=== PATIENT | male | born 1950 | race Caucasian/White ===

== ENCOUNTER 2018-07-15 11:43 | Emergency (ER) | payer MEDICARE, MEDICAID, SELFPAY ==
[2018-07-15] VITALS (25 sets, daily range): BP systolic 122–158; BP diastolic 67–85; PULSE 60–76; RESP 11–25; TEMP 36.8; O2SAT 95–96
--- NOTE | 2018-07-15 11:57 | W.ED.GENAD ---
Discharge Plan Disposition Patient Disposition: HOME Condition: Improving Discharge Details Chief Complaint: GenMedical Clinical Impression: Dehydration with hyponatremia Reason For Visit: GEOFFREY Primary Care Provider: Milind Mae ED Provider: Jerel Mata Home Meds and New Rx's Prescriptions: No Action nitroglycerin [Nitrostat] 0.4 MG tablet, sublingual 0.4 mg Sublingual .Q 5 MIN PRNRF: 0 Aspirin [Adult Aspirin Regimen] 81 MG Tablet. 81 mg PO DAILY RF: 0 Discharge Instructions Instructions: Hyponatremia (ED) Additional Instructions: We will ask our care management team to make you an appointment to follow-up in the [facility]. Return to the emergency department for worsening or any other acute concern. Continue your regularly prescribed medications Medical Decision Making 67-year-old male presents from home complaining of weeks of generalized malaise, weakness, insomnia. States is been evaluated in sleep clinic and through his primary care at the [facility]. Is also concerned someone may be poisoning his water even though he personally obtains it from local stream. States to me that there is loss he will to do not like me and is worried they may have put rat poison in his water. He arrives with normal vital signs although his blood pressure is slightly hypertensive. He is well-appearing and in no acute distress. His exam is notable for bilateral end expiratory wheeze and odor of cigarettes. Does not appear acutely ill to me but does have mild COPD exacerbation. Screening labs including INR obtained given his concern for exposure to rat poison. Patient given albuterol inhaler. Labs are notable for a sodium of 127. Patient given a liter of normal saline, ate and drank in the ED. We will ask care management to arrange an outpatient follow-up at the [facility] where he sees Dr. Milind Mae. Lab Data Lab results reviewed: Yes I reviewed the patient's lab results. Laboratory Results - last 24 hr 07/15/18 07/15/18 07/15/18 12:03 12:03 12:03 WBC 10.31 RBC 4.71 Hgb 13.4 L Hct 39.6 L MCV 84.1 MCH 28.5 MCHC 33.8 RDW 14.8 H Plt Count 311 MPV 8.5 Immature Gran % 0.0 Neutrophils % 64.0 Band Neutrophils % 3.0 Lymphocytes % 14.0 Atypical Lymphs % 3 Monocytes % 15.0 Eosinophils % 1.0 Basophils % 0.0 Absolute Neutrophils 6.91 H Absolute Lymphocytes 1.75 Absolute Monocytes 1.55 H Absolute Eosinophils 0.10 Absolute Basophils 0.00 Differential Comment Manual differential RBC Morphology See below Anisocytosis 1+ PT 9.7 INR 1.0 Sodium 127 L Potassium 4.6 Chloride 92 L Carbon Dioxide 26.8 Anion Gap 8.2 BUN 11 Creatinine 0.75 Estimated GFR/1.73 m2 >= 60.00 Glucose 107 H Calcium 8.3 L Magnesium 1.8 Total Bilirubin 0.4 AST 19 ALT 16 Alkaline Phosphatase 79 Troponin I < 0.02 Total Protein 7.6 Albumin 3.3 L ECG Data Attestation: I personally reviewed and interpreted this ECG (s) as follows: Prior ECG tracings: available for review Interpretation: Normal sinus rhythm with a rate of 72, the QRS is narrow, there is nonspecific T wave inversions in nearly all leads similar to previous comparison May 05, 2015. HPI General Mode of arrival: EMS. Date/Time Provider Initiated Documentation: 07/15/18 11:50. Information obtained by: patient and EMS. History of Present Illness 67 year old M presents to the emergency department with the chief complaint of General fatigue and concern of poison water, described as mild, Quality is described as dull and constant, Patient reports no radiation. Patient started experiencing this day(s) and it has been constant. No relieving factors improve symptom(s), No exacerbating factors reported . Patient notes other (Insomia). Patient did receive the following treatments prior to arrival, none Related Data Home Medications Medication Instructions Recorded Confirmed nitroglycerin [Nitrostat] 0.4 mg SUBLINGUAL .Q 5 MIN PRN 09/19/12 07/15/18 Aspirin [Adult Aspirin Regimen] 81 mg PO DAILY 06/30/17 07/15/18 Allergies Allergy/AdvReac Type Severity Reaction Status Date / Time No Known Allergies Allergy Unverified 07/15/18 11:50 General Stated Complaint: GenMedical LETICIA: 3 Review of Systems Review of Systems No chest pain. He has mild ongoing shortness of breath that is worse when smoked cigarettes 6 systems reviewed and otherwise negative [facility] Social History Smoking/Tobacco Use Status: Current every day Tobacco Type: cigarettes Smoking packs per day: 1 Years smoked: 50 Tobacco: How many years used: 50 Alcohol Intake: current Alcohol Intake frequency: a few times a week Alcohol type: beer Drug use: Never Substance use type: does not use Do you feel safe at home: Yes Do you feel safe in your relationship?: Yes Exam Narrative Exam Narrative: GEN: awake, alert, oriented 3. Pleasant, well groomed, interactive. HEAD: Normocephalic, atraumatic ENT: Mucous membranes dry, edentulous, External ear exam unremarkable EYES: PERRL, EOMI NECK: Full ROM, no LUIS, no menigismus CHEST/RESP: Nontender, bilateral end expiratory wheeze CARDIOVASCULAR: RRR, no murmur, rub abimbola. 2+ Rad pulse bilateral ABDOMEN: Soft, nontender, no mass. +Bowel sounds EXT: Full ROM, no edema, no rash Neuro: Grossly normal neurologic exam, conversant, interactive. Psych: Speech fluent, thoughts congruent, affect normal Course Vital Signs Temperature 36.8 C 07/15/18 11:46 Pulse 76 07/15/18 11:46 Respiratory Rate 11 L 07/15/18 11:46 Blood Pressure 142/77 H 07/15/18 11:46 Pulse Oximetry 95 07/15/18 11:46 Temperature 36.8 C 07/15/18 11:46 Temperature Source Temporal Artery Scan 07/15/18 11:46 Pulse 76 07/15/18 11:46 Respiratory Rate 18 07/15/18 11:51 Respiratory Effort 07/15/18 11:51 Respiratory Depth Normal 07/15/18 11:51 Respiratory Pattern Normal 07/15/18 11:51 Blood Pressure 142/77 H 07/15/18 11:46 Blood Pressure Position Sitting 07/15/18 11:46 Pulse Oximetry 95 07/15/18 11:46 Oxygen Delivery Method Room Air 07/15/18 11:46 Oxygen Flow Rate 0 07/15/18 11:46 Pain Level 6 07/15/18 11:46
--- NOTE | 2018-07-15 12:03 | ED.GENADUL_ITS ---
Discharge Plan Disposition Patient Disposition: HOME Condition: Improving Discharge Details Chief Complaint: GenMedical Clinical Impression: Dehydration with hyponatremia Reason For Visit: GEOFFREY Primary Care Provider: Milind Mae ED Provider: Jerel Mata Home Meds and New Rx's Prescriptions: No Action nitroglycerin [Nitrostat] 0.4 MG tablet, sublingual 0.4 mg Sublingual .Q 5 MIN PRNRF: 0 Aspirin [Adult Aspirin Regimen] 81 MG Tablet. 81 mg PO DAILY RF: 0 Discharge Instructions Instructions: Hyponatremia (ED) Additional Instructions: We will ask our care management team to make you an appointment to follow-up in the [facility]. Return to the emergency department for worsening or any other acute concern. Continue your regularly prescribed medications Medical Decision Making 67-year-old male presents from home complaining of weeks of generalized malaise, weakness, insomnia. States is been evaluated in sleep clinic and through his primary care at the [facility]. Is also concerned someone may be poisoning his water even though he personally obtains it from local stream. States to me that there is loss he will to do not like me and is worried they may have put rat poison in his water. He arrives with normal vital signs although his blood pressure is slightly hypertensive. He is well-appearing and in no acute distress. His exam is notable for bilateral end expiratory wheeze and odor of cigarettes. Does not appear acutely ill to me but does have mild COPD exacerbation. Screening labs including INR obtained given his concern for exposure to rat poison. Patient given albuterol inhaler. Labs are notable for a sodium of 127. Patient given a liter of normal saline, ate and drank in the ED. We will ask care management to arrange an outpatient follow-up at the [facility] where he sees Dr. Milind Mae. Lab Data Lab results reviewed: Yes I reviewed the patient's lab results. Laboratory Results - last 24 hr 07/15/18 07/15/18 07/15/18 12:03 12:03 12:03 WBC 10.31 RBC 4.71 Hgb 13.4 L Hct 39.6 L MCV 84.1 MCH 28.5 MCHC 33.8 RDW 14.8 H Plt Count 311 MPV 8.5 Immature Gran % 0.0 Neutrophils % 64.0 Band Neutrophils % 3.0 Lymphocytes % 14.0 Atypical Lymphs % 3 Monocytes % 15.0 Eosinophils % 1.0 Basophils % 0.0 Absolute Neutrophils 6.91 H Absolute Lymphocytes 1.75 Absolute Monocytes 1.55 H Absolute Eosinophils 0.10 Absolute Basophils 0.00 Differential Comment Manual differential RBC Morphology See below Anisocytosis 1+ PT 9.7 INR 1.0 Sodium 127 L Potassium 4.6 Chloride 92 L Carbon Dioxide 26.8 Anion Gap 8.2 BUN 11 Creatinine 0.75 Estimated GFR/1.73 m2 >= 60.00 Glucose 107 H Calcium 8.3 L Magnesium 1.8 Total Bilirubin 0.4 AST 19 ALT 16 Alkaline Phosphatase 79 Troponin I < 0.02 Total Protein 7.6 Albumin 3.3 L ECG Data Attestation: I personally reviewed and interpreted this ECG (s) as follows: Prior ECG tracings: available for review Interpretation: Normal sinus rhythm with a rate of 72, the QRS is narrow, there is nonspecific T wave inversions in nearly all leads similar to previous comparison May 05, 2015. HPI General Mode of arrival: EMS . Date/Time Provider Initiated Documentation: 07/15/18 11:50 . Information obtained by: patient and EMS . History of Present Illness 67 year old M presents to the emergency department with the chief complaint of General fatigue and concern of poison water, described as mild, Quality is described as dull and constant, Patient reports no radiation. Patient started experiencing this day(s) and it has been constant. No relieving factors improve symptom(s), No exacerbating factors reported . Patient notes other (Insomia). Patient did receive the following treatments prior to arrival, none Related Data Home Medications Medication Instructions Recorded Confirmed nitroglycerin [Nitrostat] 0.4 mg SUBLINGUAL .Q 5 MIN PRN 09/19/12 07/15/18 Aspirin [Adult Aspirin Regimen] 81 mg PO DAILY 06/30/17 07/15/18 Allergies Allergy/AdvReac Type Severity Reaction Status Date / Time No Known Allergies Allergy Unverified 07/15/18 11:50 General Stated Complaint: GenMedical LETICIA: 3 Review of Systems Review of Systems No chest pain. He has mild ongoing shortness of breath that is worse when smoked cigarettes 6 systems reviewed and otherwise negative [facility] Social History Smoking/Tobacco Use Status: Current every day Tobacco Type: cigarettes Smoking packs per day: 1 Years smoked: 50 Tobacco: How many years used: 50 Alcohol Intake: current Alcohol Intake frequency: a few times a week Alcohol type: beer Drug use: Never Substance use type: does not use Do you feel safe at home: Yes Do you feel safe in your relationship?: Yes Exam Narrative Exam Narrative: GEN: awake, alert, oriented 3. Pleasant, well groomed, interactive. HEAD: Normocephalic, atraumatic ENT: Mucous membranes dry, edentulous, External ear exam unremarkable EYES: PERRL, EOMI NECK: Full ROM, no LUIS, no menigismus CHEST/RESP: Nontender, bilateral end expiratory wheeze CARDIOVASCULAR: RRR, no murmur, rub abimbola. 2+ Rad pulse bilateral ABDOMEN: Soft, nontender, no mass. +Bowel sounds EXT: Full ROM, no edema, no rash Neuro: Grossly normal neurologic exam, conversant, interactive. Psych: Speech fluent, thoughts congruent, affect normal Course Vital Signs Temperature 36.8 C 07/15/18 11:46 Pulse 76 07/15/18 11:46 Respiratory Rate 11 L 07/15/18 11:46 Blood Pressure 142/77 H 07/15/18 11:46 Pulse Oximetry 95 07/15/18 11:46 Temperature 36.8 C 07/15/18 11:46 Temperature Source Temporal Artery Scan 07/15/18 11:46 Pulse 76 07/15/18 11:46 Respiratory Rate 18 07/15/18 11:51 Respiratory Effort 07/15/18 11:51 Respiratory Depth Normal 07/15/18 11:51 Respiratory Pattern Normal 07/15/18 11:51 Blood Pressure 142/77 H 07/15/18 11:46 Blood Pressure Position Sitting 07/15/18 11:46 Pulse Oximetry 95 07/15/18 11:46 Oxygen Delivery Method Room Air 07/15/18 11:46 Oxygen Flow Rate 0 07/15/18 11:46 Pain Level 6 07/15/18 11:46
[2018-07-15 12:16] LABS: Abs Immature Grans 0.04 k/cumm (0.0-0.09); HCT 39.6 % (40.0-50.0); HGB 13.4 g/dL (13.5-17.5); Mean Corp. HGB Concentration 33.8 g/dL (32.0-36.0); Mean Corpuscular Hemoglobin 28.5 pg (27.0-33.0); Mean Corpuscular Volume 84.1 fL (80-95); Mean Platelet Volume 8.5 fL (8.0-11.0); Platelet Count 311 x1000/uL (130-400); RBC 4.71 m/cumm (4.50-6.00); RBC Distribution Width 14.8 % (11.8-14.1); White Blood Cell Count 10.31 k/cumm (4.4-10.8)
[2018-07-15 12:22] LABS: Prothrombin Time 9.7 sec (9.3-11.0)
[2018-07-15] MEDS: Albuterol HFA 8 GM 60 PUFF INH IH (12:22)
[2018-07-15 12:31] LABS: ALT 16 U/L (12-78); AST 19 U/L (15-37); Albumin 3.3 g/dL (3.4-5.0); Alkaline Phosphatase 79 U/L (46-116); Anion Gap 8.2 mmol/L (3-11); BUN 11 mg/dL (7-18); Bilirubin, Total 0.4 mg/dL (0.2-1.0); CO2 26.8 mmol/L (21.0-32.0); CREATININE 0.75 mg/dL (0.70-1.30); Calcium 8.3 mg/dL (8.5-10.1); Chloride 92 mmol/L (98-107); Glucose 107 mg/dL (70-100); Magnesium 1.8 mg/dL (1.8-2.4); Potassium 4.6 mmol/L (3.5-5.1); Sodium 127 mmol/L (136-145); Total Protein 7.6 g/dL (6.4-8.2); Troponin I < 0.02 ng/mL (0.00-0.06)
[2018-07-15 12:39] LABS: Absolute Neutrophil Count 6.91 k/cumm (1.2-6.7); Atypical Lymphocytes % 3
[2018-07-15 12:40] LABS: Absolute Lymphocyte Count 1.75 k/cumm (1.2-3.4); Absolute Monocyte Count 1.55 k/cumm (0.11-0.7); Anisocytosis 1+; Diff Comment Manual Differential
[2018-07-15] MEDS: Normal Saline 1,000 ML 1000 ML IV (13:06)
--- NOTE | 2018-07-16 09:58 | PDOC.ERCMPRO ---
Care Management Progress Note 07/16-Dr. Mata requested assistance with a PCP (Milind Mae, [facility]) f/u 07/19 or 07/20 for dehydration and hyponatremia. Called [facility] and spoke with Nathalia. Nathalia will reach out to patient for f/u. They have a copy of the ED report.
--- NOTE | 2018-07-16 09:59 | CMPROGNOTE_ITS ---
Care Management Progress Note 07/16-Dr. Mata requested assistance with a PCP (Milind Mae, [facility]) f/u 07/19 or 07/20 for dehydration and hyponatremia. Called [facility] and spoke with Nathalia. Nathalia will reach out to patient for f/u. They have a copy of the ED report.
== END 2018-07-15 14:22 | disposition home or self-care (01) ==
PROVIDERS: Emergency Provider Emergency Medicine; PCP Physician Assistant Medical
DX: E86.0 Dehydration (principal); E87.6 Hypokalemia
CPT/HCPCS: 80053; 96360; 99283; 83735; 84484; 85025; 85610

== ENCOUNTER 2018-07-23 09:28 | Emergency (ER) | payer MEDICARE, MEDICAID, SELFPAY ==
[2018-07-23] VITALS (63 sets, daily range): BP systolic 100–175; BP diastolic 64–105; PULSE 57–87; RESP 7–24; TEMP 37; O2SAT 86–100
--- NOTE | 2018-07-23 09:42 | DI.RAD_ITS ---
SYMPTOM/DIAGNOSIS: CHEST PAIN PORTABLE AP CHEST: Comparison is made with PA and lateral chest dated 06/30/17. The heart size is normal. Leads overlie the chest. There are old right lateral rib fractures. No acute rib fracture or pneumothorax is seen. There are mildly increased streaky densities at the lower lung bases which could indicate chronic fibrotic changes or could represent mild bibasilar infiltrates. No effusions are seen. IMPRESSION: Question of worsening of interstitial changes versus mild bibasilar infiltrates.
[2018-07-23] MEDS: Aspirin 81 MG CHEW (09:53)
--- NOTE | 2018-07-23 09:54 | NUR.NOTE ---
Nursing Note: Per MD Miller give 4 chewable 81mg ASA and 3 SL nitro
--- NOTE | 2018-07-23 09:56 | NUR.NOTE ---
Nursing Note: Pt reports chest pain x last 2 days, 10/08 currently, did not take his rx nitro becuase it was at another house. SL nitro given in ER. awaiting lab results and CXR. no acute resp ditress. cp does not radiate, described as pressure. pt denies any past CT's. ppd smoker. alert and oriented. NSR on monitoring analyst with occ. PVC's. will continue to monitor.
[2018-07-23 09:59] LABS: Abs Immature Grans 0.05 k/cumm (0.0-0.09); Absolute Basophil Count 0.05 k/cumm (0.0-0.2); Absolute Eosinophil Count 0.08 k/cumm (0.0-0.7); Absolute Lymphocyte Count 1.84 k/cumm (1.2-3.4); Absolute Monocyte Count 0.95 k/cumm (0.11-0.7); Basophils % 0.4; Eosinophils % 0.7; HCT 42.2 % (40.0-50.0); HGB 14.3 g/dL (13.5-17.5); Immature Grans % 0.4; Lymphocytes % 15.4; Mean Corp. HGB Concentration 33.9 g/dL (32.0-36.0); Mean Corpuscular Hemoglobin 28.1 pg (27.0-33.0); Mean Corpuscular Volume 82.9 fL (80-95); Mean Platelet Volume 8.2 fL (8.0-11.0); Monocytes % 7.9; Neutrophils % 75.2; RBC 5.09 m/cumm (4.50-6.00); RBC Distribution Width 14.9 % (11.8-14.1); White Blood Cell Count 11.97 k/cumm (4.4-10.8)
[2018-07-23 10:19] LABS: ALT 21 U/L (12-78); AST 18 U/L (15-37); Albumin 3.5 g/dL (3.4-5.0); Alkaline Phosphatase 87 U/L (46-116); Anion Gap 12.7 mmol/L (3-11); BUN 11 mg/dL (7-18); Bilirubin, Total 0.5 mg/dL (0.2-1.0); CO2 25.3 mmol/L (21.0-32.0); CREATININE 0.85 mg/dL (0.70-1.30); Calcium 9.2 mg/dL (8.5-10.1); Chloride 91 mmol/L (98-107); Glucose 129 mg/dL (70-100); Potassium 4.4 mmol/L (3.5-5.1); Sodium 129 mmol/L (136-145); Total Protein 8.1 g/dL (6.4-8.2)
[2018-07-23 10:21] LABS: Platelet Count 520 x1000/uL (130-400)
[2018-07-23 10:22] LABS: Magnesium 1.8 mg/dL (1.8-2.4); NT-proBNP 745 pg/mL; Troponin I < 0.02 ng/mL (0.00-0.06)
--- NOTE | 2018-07-23 10:23 | W.ED.GENAD ---
Discharge Plan Disposition Patient Disposition: AGAINST MEDICAL ADVICE Discharge Details Chief Complaint: Chest Pain Clinical Impression: Chest pain, Syncope Primary Care Provider: Liliane Bennett ED Provider: Ernie Mliler Home Meds and New Rx's Prescriptions: No Action nitroglycerin [Nitrostat] 0.4 MG tablet, sublingual 0.4 mg Sublingual .Q 5 MIN PRNRF: 0 Aspirin [Adult Aspirin Regimen] 81 MG Tablet. 81 mg PO DAILY RF: 0 Discharge Instructions Instructions: Syncope (ED) Additional Instructions: You have decided to leave against medical advice. Please had a stress test as soon as possible. You will be contacted to schedule. Return Zio patch cardiac monitor technician as directed. Please return to the ER at any time for further workup and treatment. Call your doctor komal to arrange timely follow-up. Referrals: Liliane Bennett [Primary Care Provider] - Discharge Data Discharge Date/Time-TO BE ENTERED AT DEPARTURE: 07/23/18 16:33 Medical Decision Making <Perla Miller MD - Last Filed: 07/30/18 08:38> Calvin Juan is a 67-year-old man with history of COPD, hypertension, high cholesterol, sleep apnea, alcohol abuse who presented to the emergency department with several days of intermittent chest pain and shortness of breath, along with [id number] syncopal episodes with no prodrome a few days ago that have not recurred. On exam patient is well and nontoxic appearing. He has mild bilateral expiratory wheeze, no rales or rhonchi. Normal work of breathing. Concern for ACS, PE, metabolic/lyte derangement, dehydration, arrhythmia, other. Exam/history is not consistent with acute emergent aortic pathology, sepsis, meningitis. Plan for EKG, screening labs, IV fluid hydration, CT PE study, telemetry, aspirin, nitroglycerin sublingual. Patient reports that his pain seemed to have improved before the nitro, and nitro did not make a difference. Feels improved after DuoNeb. Troponin x2 and EKG x2 negative. Patient reports that he feels well and has had no further chest pain. Concern for syncope without prodrome and recurring intermittent chest pain. Plan for admission. Patient declines admission at this time, states that he would much rather be in his own home and would like to follow-up as an outpatient. I did discuss the risks of leaving AGAINST MEDICAL ADVICE with the patient including and permanent disability. Patient verbalized understanding the risks, and stated that he would still rather not be admitted and would like to go home. Patient has decision-making capacity. At this time plan for zio patch, outpatient stress test, and outpatient follow-up with patient's PCP. I had a lengthy discussion with the patient regarding return to emergency department precautions, home care, and importance of outpatient follow-up. Patient verbalized understanding of the plan was amenable. All questions were answered. Patient was signed out to Dr. Miller at time of shift change with ziopatch, outpatient stress test scheduling, outpatient follow-up pending. Medical Records Medical records reviewed: Yes I reviewed the patient's medical records. Imaging Data Radiologic Study: Attestation: I personally reviewed and interpreted this imaging study as follows: Radiologist's impression: PORTABLE AP CHEST: Comparison is made with PA and lateral chest dated 06/30/17. The heart size is normal. Leads overlie the chest. There are old right lateral rib fractures. No acute rib fracture or pneumothorax is seen. There are mildly increased streaky densities at the lower lung bases which could indicate chronic fibrotic changes or could represent mild bibasilar infiltrates. No effusions are seen. IMPRESSION: Question of worsening of interstitial changes versus mild bibasilar infiltrates. CHEST CT FOR PULMONARY EMBOLISM: CT angiography was performed with multi slice acquisition and multi planar and 3D reconstruction. The pulmonary arteries and aorta are well opacified with IV contrast and no pulmonary emboli or aortic dissection is seen. The heart size appears normal. The lungs show respiratory motion. There are a few blebs seen in the anterior right upper lobe. There is mild underlying apical emphysematous changes. There are increased densities seen in the right lower lobe as well as minimal densities seen in the left lower lobe posteriorly which have a somewhat reticulonodular appearance. The findings could represent acute infiltrates vs chronic disease. There is considerable motion near the lung bases. No gross abnormalities are seen of the visualized portions of the upper abdomen. IMPRESSION: No evidence of pulmonary emboli. Posterior basilar densities could represent acute pneumonitis vs chronic reticulonodular disease. Lab Data Lab results reviewed: Yes I reviewed the patient's lab results. ECG Data Attestation: I personally reviewed and interpreted this ECG (s) as follows: Interpretation: EKG shows sinus rhythm at 77, normal axis, diffuse T wave flattening and T wave inversions, present on prior 07/15/18, non-diagnostic EKG. EKG shows sinus rhythm at 71, normal axis, unchanged from prior, non-diagnostic EKG <Ernie Miller MD - Last Filed: 07/29/18 00:09> 16:20 -- Care signed out at 16:05. Patient leaving AMA after extended conversation with Dr. Perla Miller. Risks of leaving AMA were explained to patient and patient verbalized understanding. Patient noted to have decisional making capacity. Plan at signout to attempt to contact patient's PCP and discuss ED presentation and course and hopefulyl secure outpatient follow-up. RT was consulted to apply zio patch. Outpatient stress test was ordered to hopefully expedite outpatient workup. I called and spoke with Liliane Bennett (patient's PCP). I reviewed ED course and workup, decision to leave AMA, I recommend close outpatient follow-up, cardiology referral and continued workup. She will arrange timely follow-up. HPI <Perla Miller MD - Last Filed: 07/30/18 08:38> General Mode of arrival: ambulatory. Date/Time Provider Initiated Documentation: 07/23/18 09:42. Limitations to Documentation: no limitations. Information obtained by: patient, RN notes reviewed and old records reviewed. HPI Narrative: Calvin Juan is a 67-year-old man with history of COPD, hypertension, high cholesterol, sleep apnea, alcohol abuse presenting to the emergency department with chest pain and fainting. Patient reports that 3 days ago he was walking across the parking lot when he fainted. Patient reports that over the past week he has felt generally lousy, but he denies having presyncopal symptoms directly prior to fainting. Patient reports that he fell to the ground, and was unconscious for a minute or 2, and happened to be attended to by a doctor who is also in the parking lot. Patient reports that when he came to, he continued to go into the grocery store, but then fainted again without warning. Patient reports that he has been having intermittent chest pain over the past week or so, and has also felt somewhat more short of breath than usual. He has had no further fainting episodes. He reports that he has had a 20 pound weight loss in the past month, but his appetite seems normal. He denies fevers, vomiting, diarrhea, rash, focal weakness/numbness. He reports chronic cough that is at baseline. Patient reports that he has been having similar chest pain for months, but it seems to have increased in frequency over the past week or so. Patient reports sensation is sharp and stabbing in the middle of his chest, nonexertional, nonpleuritic. Every day smoker. Related Data Home Medications Medication Instructions Recorded Confirmed nitroglycerin [Nitrostat] 0.4 mg SUBLINGUAL .Q 5 MIN PRN 09/19/12 07/15/18 Aspirin [Adult Aspirin Regimen] 81 mg PO DAILY 06/30/17 07/15/18 Allergies Allergy/AdvReac Type Severity Reaction Status Date / Time No Known Allergies Allergy Unverified 07/15/18 11:50 General Stated Complaint: Chest Pain LETICIA: 2 Review of Systems <Perla Miller MD - Last Filed: 07/30/18 08:38> Review of Systems Constitutional: denies fevers Eyes: denies eye pain ENT: denies facial pain, dental pain, sore throat Cardiovascular: denies edema, reports chest pain Respiratory: Report SOB, chronic cough GI: denies abdominal pain, vomiting, diarrhea : denies flank pain MSK: denies back pain, neck pain, arthralgias, myalgias Skin: denies rash Neuro: denies headaches, numbness, weakness PFSH <Perla Miller MD - Last Filed: 07/30/18 08:38> Social History Smoking/Tobacco Use Status: Current every day Tobacco Type: cigarettes Tobacco: How many years used: 50 Alcohol Intake: current Alcohol Intake frequency: a few times a week Alcohol type: beer Drug use: Never Substance use type: does not use Do you feel safe at home: Yes Do you feel safe in your relationship?: Yes Exam <Perla Miller MD - Last Filed: 07/30/18 08:38> Narrative Exam Narrative: Constitutional: well and [id number], pleasant, conversing normally HENT: head atraumatic/normocephalic/normal inspection, mucous membranes moist Eyes: conjunctiva normal, sclera normal, pupils 3mm b/l Neck: no stridor, normal ROM, trachea midline Chest: normal inspection Resp: normal work of breathing, expiratory wheeze bilaterally throughout, no rales or rhonchi Cardio: normal rate, normal rhythm, no murmur appreciated GI: abdomen soft, non-tender, non-distended Back: normal inspection, no rash Skin: warm, dry, normal color, no rash Neuro: alert, not altered, grossly non-focal, normal tone Ext: no edema, no posterior calf tenderness Psych: normal mood, normal affect, normal behavior Course <Perla Miller MD - Last Filed: 07/30/18 08:38> Vital Signs Pulse 72 07/23/18 09:30 Blood Pressure 173/95 H 07/23/18 09:30 Pulse Oximetry 96 07/23/18 09:30 Temperature 37.0 C 07/23/18 09:31 Temperature Source Skin 07/23/18 09:31 Pulse 76 07/23/18 10:01 Pulse 76 07/23/18 10:10 Respiratory Rate 14 07/23/18 10:10 Respiratory Effort Short of Breath 07/23/18 09:52 Blood Pressure 139/77 07/23/18 10:01 Blood Pressure Mean 92 07/23/18 10:01 Pulse Oximetry 92 L 07/23/18 10:10 Oxygen Delivery Method Room Air 07/23/18 09:31 Oxygen Flow Rate 0 07/23/18 09:31 Pain Level 4 07/23/18 10:00 Lab/Test Results Lab/Test Results: Laboratory Tests Range/Units 07/23/18 07/23/18 07/23/18 09:50 09:50 09:50 WBC (4.4-10.8) k/cumm 11.97 H RBC (4.50-6.00) m/cumm 5.09 Hgb (13.5-17.5) g/dL 14.3 Hct (40.0-50.0) % 42.2 MCV (80-95) fL 82.9 MCH (27.0-33.0) pg 28.1 MCHC (32.0-36.0) g/dL 33.9 RDW (11.8-14.1) % 14.9 H Plt Count (130-400) x1000/uL 520 H D MPV (8.0-11.0) fL 8.2 Immature Gran % 0.4 Neutrophils % 75.2 Lymphocytes % 15.4 Monocytes % 7.9 Eosinophils % 0.7 Basophils % 0.4 Absolute Neutrophils (1.2-6.7) k/cumm 9.00 H Absolute Lymphocytes (1.2-3.4) k/cumm 1.84 Absolute Monocytes (0.11-0.7) k/cumm 0.95 H Absolute Eosinophils (0.0-0.7) k/cumm 0.08 Absolute Basophils (0.0-0.2) k/cumm 0.05 Sodium (136-145) mmol/L 129 L Potassium (3.5-5.1) mmol/L 4.4 Chloride (98-107) mmol/L 91 L Carbon Dioxide (21.0-32.0) mmol/L 25.3 Anion Gap (3-11) mmol/L 12.7 H BUN (7-18) mg/dL 11 Creatinine (0.70-1.30) mg/dL 0.85 Estimated GFR/1.73 m2 (mL/min/1.73m2) >= 60.00 Glucose (70-100) mg/dL 129 H Calcium (8.5-10.1) mg/dL 9.2 Magnesium (1.8-2.4) mg/dL 1.8 Total Bilirubin (0.2-1.0) mg/dL 0.5 AST (15-37) U/L 18 ALT (12-78) U/L 21 Alkaline Phosphatase (46-116) U/L 87 Troponin I (0.00-0.06) ng/mL < 0.02 NT-Pro-B Natriuret Pep ( - 299) pg/mL 745 H Total Protein (6.4-8.2) g/dL 8.1 Albumin (3.4-5.0) g/dL 3.5 Sign Out <Perla Miller MD - Last Filed: 07/30/18 08:38> Sign Out Data: Sign Out Comment: Patient signed out to Dr. Miller at time of shift change with zio patch, stress test scheduling, and discharge AMA pending. Last updated by Perla Miller MD at 07/23/18 15:55
[2018-07-23] MEDS: Albuterol/Ipratropium 3 ML UPD VIAL UPD (10:30)
[2018-07-23] MEDS: Normal Saline 500 ML IV ×2 (11:33→13:30)
--- NOTE | 2018-07-23 11:48 | DI.CT_ITS ---
SYMPTOMS/DIAGNOSIS: CHEST PAIN, SOB, SYNCOPE CHEST CT FOR PULMONARY EMBOLISM: CT angiography was performed with multi slice acquisition and multi planar and 3D reconstruction. The pulmonary arteries and aorta are well opacified with IV contrast and no pulmonary emboli or aortic dissection is seen. The heart size appears normal. The lungs show respiratory motion. There are a few blebs seen in the anterior right upper lobe. There is mild underlying apical emphysematous changes. There are increased densities seen in the right lower lobe as well as minimal densities seen in the left lower lobe posteriorly which have a somewhat reticulonodular appearance. The findings could represent acute infiltrates vs chronic disease. There is considerable motion near the lung bases. No gross abnormalities are seen of the visualized portions of the upper abdomen. IMPRESSION: No evidence of pulmonary emboli. Posterior basilar densities could represent acute pneumonitis vs chronic reticulonodular disease.
[2018-07-23] MEDS: Omnipaque 350 MG/ML 100 ML BTL IV (12:17)
--- NOTE | 2018-07-23 12:40 | NUR.NOTE ---
Nursing Note:Pt returned from CT, no acute changes. chest pain gone. reading a book in bed, no further needs. will continue to monitor.
[2018-07-23 15:52] LABS: Troponin I < 0.02 ng/mL (0.00-0.06)
--- NOTE | 2018-07-23 16:24 | NUR.NOTE ---
Nursing Note: RT going over zio patch with patient. IV removed.
== END 2018-07-23 16:33 | disposition left against medical advice (07) ==
PROVIDERS: Student in an Organized Health Care Education/Training Program; Emergency Provider Student in an Organized Health Care Education/Training Program; PCP Registered Nurse
DX: R55 Syncope and collapse (principal); R07.9 Chest pain, unspecified; R06.02 Shortness of breath; R63.4 Abnormal weight loss; I10 Essential (primary) hypertension; J44.9 Chronic obstructive pulmonary disease, unspecified; F17.210 Nicotine dependence, cigarettes, uncomplicated
CPT/HCPCS: 0296T; 36415; 71275; 80053; 93005; 94640; 96360; 96361; 99285; 71045; 83735; 83880; 84484; 85025; 93010; J3490; J7620

== ENCOUNTER 2019-04-16 08:23 | Emergency (ER) | payer MEDICARE, MEDICAID, SELFPAY ==
[2019-04-16 08:34] VITALS: BP 143/83; PULSE 62; RESP 14; TEMP 37; O2SAT 98
--- NOTE | 2019-04-16 09:23 | W.ED.GENAD ---
Discharge Plan Disposition Patient Disposition: HOME Condition: Good Discharge Details Chief Complaint: Laceration Clinical Impression: Laceration Primary Care Provider: Liliane Bennett ED Provider: Philomena Leos Home Meds and New Rx's Prescriptions: No Action nitroglycerin [Nitrostat] 0.4 MG tablet, sublingual 0.4 mg Sublingual .Q 5 MIN PRNRF: 0 Aspirin [Adult Aspirin Regimen] 81 MG Tablet.Dr 81 mg PO DAILY RF: 0 Discharge Instructions Instructions: Laceration (ED) Additional Instructions: Keep initial dressing in place for 1 to 2 days. Then remove dressing and begin wound care. Wound care includes washing the area with soap and water once or twice daily. Pat dry completely. Apply a light amount of antibiotic ointment over the wound. Apply a dressing over the wound. Suture removal in 10 days as discussed. Observe for any signs of infection specifically, redness, swelling, drainage, pain or discomfort or warmth. Return for any worsening or concerns sooner if needed. Your tetanus was last updated in 2011 Medical Decision Making Is a 68-year-old man who presents for laceration to the dorsal aspect of his right hand. Patient sustained laceration prior to arrival when cutting kindling with a hatchet accidentally missed striking his right hand. Patient sustained a 5 cm laceration of the dorsal hand. Patient's tetanus is last updated in 2011. Patient on exam has a linear laceration with no wrist drop or associated ligamentous injury. Patient has full range of motion. No bony pain with palpation. Declines x-ray at this time. Patient's wound was prepped appropriately with Betadine, lidocaine 1% approximately 3 cc used locally. 8 horizontal mattress sutures placed for wound approximation. No sign of complication. Patient tolerated well. Wound care discussed at length. Patient reports understanding. Signs and symptoms of infection were discussed. Patient feels comfortable managing his wound at home. Suture removal encouraged in 10 days. The patient was stable and requested discharge. Prior to discharge, my usual and customary return precautions were reviewed with the patient - this included follow-up instructions and reasons to return to the Emergency Department if conditions worsens, does not improve as expected, or other new concerns arise. HPI General Date/Time Provider Initiated Documentation: 04/16/19 09:22. HPI Narrative: Is a 68-year-old patient who presents for a right dorsal hand/wrist laceration which he sustained at home with a hatchet. Patient was chopping kindling and accidentally missed and chopped back of his hand. Patient reports mild bleeding at the site. Controlled with pressure. Patient denies numbness, tingling or weakness of wrist or hand. Patient reports full range of motion. Patient's tetanus is unknown. Reviewed in the computer as last updated in 2011. Patient denies any bony pain or concern of fracture. Injury occurred prior to arrival. No other concerns or complaints at this time. Related Data Home Medications Medication Instructions Recorded Confirmed nitroglycerin [Nitrostat] 0.4 mg SUBLINGUAL .Q 5 MIN PRN 09/19/12 04/16/19 Aspirin [Adult Aspirin Regimen] 81 mg PO DAILY 06/30/17 04/16/19 Allergies Allergy/AdvReac Type Severity Reaction Status Date / Time No Known Allergies Allergy Unverified 04/16/19 08:36 General Stated Complaint: Laceration LETICIA: 3 Review of Systems All systems reviewed & are unremarkable except as noted in HPI and below Constitutional Constitutional: Denies weakness Musculoskeletal Musculoskeletal: Denies limited range of motion, Denies numbness and Denies tingling Integumentary/Breasts Skin/Breast: Reports wounds Neurologic Neurologic: Denies numbness, Denies tingling, Denies paresthesias and Denies weakness [facility] Social History Smoking/Tobacco Use Status: Current every day Tobacco Type: cigarettes Smoking packs per day: 1 Smoking cigarettes per day: 20.0 Years smoked: 50 Smoking pack-years: 50.00 Tobacco: How many years used: 50 Alcohol Intake: current Alcohol Intake frequency: a few times a week Alcohol type: beer Drug use: Never Substance use type: does not use Do you feel safe at home: Yes Do you feel safe in your relationship?: Yes Exam Narrative Exam Narrative: CONST: Healthy appearing patient, in no acute distress. Well hydrated. Alert and alert. MUSCULOSKELETAL: Normal Gait. FROM of all extremities. Patient with a laceration across the dorsal aspect of his proximal hand. Laceration is linear approximately 5 cm. Bleeding controlled with pressure. No difficulty with dorsiflexion of the wrist or any of the digits. Strength intact. No bony pain with palpation. SKIN: Normal. Dry. No rashes. See laceration above NEURO: Alert and awake. Speech clear. Sensation intact distally PSYCH: Normal affect. Cooperative. Course Vital Signs Vital signs: Vital Signs Temperature 37.0 C 04/16/19 08:34 Pulse 62 04/16/19 08:34 Respiratory Rate 14 04/16/19 08:34 Blood Pressure 143/83 H 04/16/19 08:34 Pulse Oximetry 98 04/16/19 08:34 Temperature 37.0 C 04/16/19 08:34 Temperature Source Temporal Artery Scan 04/16/19 08:34 Pulse 62 04/16/19 08:34 Respiratory Rate 14 04/16/19 08:34 Respiratory Effort Non-Labored 04/16/19 08:35 Blood Pressure 143/83 H 04/16/19 08:34 Blood Pressure Position Sitting 04/16/19 08:34 Pulse Oximetry 98 04/16/19 08:34 Oxygen Delivery Method Room Air 04/16/19 08:34 Oxygen Flow Rate 0 04/16/19 08:34 Pain Level 2 04/16/19 08:34 Procedures Laceration Laceration 1: Site: hand Side (If applicable): right Size (cm): 5 Description: linear Depth: simple, single layer Local Anesthetic: Lidocaine 1% Amount of anesthesia used (mL): 3 Pre-repair: wound explored, irrigated extensively and deep structures intact Size (cm): 4-0 Number of sutures: 8 Technique: horizontal mattress
== END 2019-04-16 09:44 | disposition home or self-care (01) ==
LOC: ER 09:40
PROVIDERS: Emergency Provider Physician Assistant; PCP Registered Nurse
DX: S61.511A Laceration without foreign body of right wrist, initial encounter (principal); W27.0XXA Contact with workbench tool, initial encounter; Y93.H9 Activity, other involving exterior property and land maintenance, building and construction
CPT/HCPCS: 12002

== ENCOUNTER 2019-09-24 11:23 | Inpatient (IN) | payer MEDICARE, MEDICAID, SELFPAY ==
[2019-09-24 11:26] VITALS: BP 145/92; PULSE 85; RESP 16; TEMP 36.2; O2SAT 93
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
--- NOTE | 2019-09-24 11:50 | NUR.NOTE ---
Nursing Note: 1145--Valuable envelope sealed/signed by Calvin Juan/witnessed by Bravo and Will LIRA/given to Clemencia LIRA [employer] Physiological Technician----Contents--34-Twenty dollar bills---1 brown zip wallet with Drivers licience and a debit card--1 silver colored virginie knife/1 ring of keys--and 5 bullets 22 caliber--and 1 white bic launching pad mechanic.
[2019-09-24 12:06] LABS: Abs Immature Grans 0.05 k/cumm (0.0-0.09); Absolute Basophil Count 0.04 k/cumm (0.0-0.2); Absolute Eosinophil Count 0.05 k/cumm (0.0-0.7); Absolute Lymphocyte Count 1.96 k/cumm (1.2-3.4); Absolute Monocyte Count 0.98 k/cumm (0.11-0.7); Absolute Neutrophil Count 8.64 k/cumm (1.2-6.7); Basophils % 0.3; Eosinophils % 0.4; HCT 41.2 % (40.0-50.0); HGB 14.5 g/dL (13.5-17.5); Immature Grans % 0.4 %; Lymphocytes % 16.7; Mean Corp. HGB Concentration 35.2 g/dL (32.0-36.0); Mean Corpuscular Hemoglobin 28.4 pg (27.0-33.0); Mean Corpuscular Volume 80.8 fL (80-95); Mean Platelet Volume 8.3 fL (8.0-11.0); Monocytes % 8.4; Neutrophils % 73.8; Platelet Count 418 x1000/uL (130-400); RBC Distribution Width 14.9 % (11.8-14.1); White Blood Cell Count 11.71 k/cumm (4.4-10.8)
[2019-09-24 12:07] LABS: Bilirubin Negative (Negative); Blood Small (Negative); Clarity Clear (Clear); Glucose Negative (Negative); Ketones Negative (Negative); Leukocyte Esterase Negative (Negative); Nitrite Negative (Negative); Specific Gravity >= 1.030 (1.005-1.025); Urobilinogen 0.2 EU/dL (Up TO 0.2)
[2019-09-24 12:19] LABS: WBC 0-2 HPF (0-5)
[2019-09-24 12:20] LABS: Epithelial Cells Few HPF (Negative)
[2019-09-24 12:21] LABS: Bacteria Negative HPF (Negative); C & S Indicated? No; Casts Negative LPF (Negative); Crystals Negative HPF (Negative); Mucus Negative (Negative)
[2019-09-24 12:24] LABS: *AMPHETAMINES SCREEN URINE Negative (Negative); *BARBITURATES SCREEN URINE Negative (Negative); *BENZODIAZEPINES SCREEN URINE Negative (Negative); Cannabinoids THC Negative (Negative); Cocaine Screen,Urine Negative (Negative); METHADONE URINE SCREEN Negative (Negative); OPIATES URINE SCREEN Negative (Negative)
[2019-09-24 12:25] LABS: Tricyclic Antidepressants Negative (Negative)
[2019-09-24 12:29] LABS: Troponin I < 0.05 ng/Ml (<0.06)
[2019-09-24 12:30] LABS: ALT 25 U/L (16-63); AST 38 U/L (15-37); Alkaline Phosphatase 88 U/L (46-116); Anion Gap 8.8 mmol/L (3-11); BUN 14 mg/dL (7-18); Bilirubin, Total 1.1 mg/dL (0.2-1.0); CO2 24.2 mmol/L (21.0-32.0); CREATININE 0.84 mg/dL (0.70-1.30); Calcium 9.1 mg/dL (8.5-10.1); Chloride 90 mmol/L (98-107); ETHANOL BLOOD < 3.0 mg/dL (<3); Glucose 107 mg/dL (74-106); Potassium 4.5 mmol/L (3.5-5.1); TSH 1.67 uIU/mL (0.36-3.74); Total Protein 8.2 g/dL (6.4-8.2)
[2019-09-24 12:33] LABS: Sodium 123 mmol/L (136-145)
[2019-09-24 12:36] LABS: Acetaminophen < 2 ug/mL (10-30)
[2019-09-24] MEDS: Normal Saline 1,000 ML 1000 ML IV (13:01)
--- NOTE | 2019-09-24 13:10 | DI.RAD_ITS ---
EXAM: XR PORTABLE CHEST AP CLINICAL HISTORY: CHEST PAIN,? ACUTE DISEASE TECHNIQUE: 2D digital imaging was performed. COMPARISON: No exams were available for comparison FINDINGS: LUNGS: Clear. No pleural abnormality seen. No pneumothorax. HEART: Normal. Bones: Old right upper rib fractures. Degenerative changes in the thoracic spine. IMPRESSION: No acute findings. DATA REPOSITORY: RADIATION DOSE DELIVERED:
--- NOTE | 2019-09-24 13:34 | DI.CT_ITS ---
EXAM: CT HEAD WO CLINICAL HISTORY: Delusions, hyponatremia. TECHNIQUE: Imaging Protocol: Axial computed tomography images with coronal and sagittal reformatted images were created and reviewed COMPARISON: No exams were available for comparison FINDINGS: Ventricles and Extra axial spaces: Normal in size and morphology for the patient's age. Hemorrhage: None. Cerebral parenchyma: Normal. Midline shift: None. Brainstem/Cerebellum: Normal. Calvarium: Normal. Visualized Paranasal sinuses/Mastoids: Clear. Soft Tissues: Unremarkable. IMPRESSION: No acute intracranial process. RADIATION DOSE DELIVERED: 662.78mGy.cm Total DLP DATA REPOSITORY: All CT scans at this facility are submitted to the National Radiology Data Registry (NRDR) Dose Index Registry (DIR) with the [employer] (ACR). RADIATION OPTIMIZATION: All CT scans at this facility use at least one of these dose optimization te chniques: automated exposure control; mA and/or kV adjustment per patient size (includes targeted exa ms where dose is matched to clinical indication); or iterative reconstruction.
--- NOTE | 2019-09-24 13:43 | DI.CT_ITS ---
EXAM: CT CHEST PE CTA CLINICAL HISTORY: Chest pain. TECHNIQUE: Imaging Protocol: Axial CT angiography was performed with multi-slice acquisition and mu lti-planar and/or 3D reconstructions. CONTRAST MATERIAL: Intravenous: Omnipaque 350 Contrast volume:100 ml COMPARISON: CT CT CHEST PE CTA from 07/23/2018 CR XR PORTABLE CHEST AP from 09/24/2019 FINDINGS: Pulmonary Arteries: No evidence of filling defect to suggest pulmonary emboli. Tracheobronchial tree: Patent where visualized. Mediastinum and Madeleine: Stable small hilar and mediastinal lymph nodes. Pulmonary parenchyma: There are underlying emphysematous changes. Reticulonodular densities are agai n noted at the lung bases which appears to have improved when compared with the previous exam. The c hange could also be secondary to better pulmonary inflation and lack of respiratory motion.. Pleura: No effusion or pneumothorax. Heart: The heart is not dilated. Mild coronary artery calcifications are seen. Aorta: Thoracic aorta non-dilated. No dissection. Upper abdomen: Small hiatal hernia.. Bones: Degenerative changes are again noted in the spine. There is stable mild midthoracic compressi on fracture. IMPRESSION: No evidence of pulmonary embolism. Emphysematous changes and chronic reticular nodular densities at t he lung bases. RADIATION DOSE DELIVERED: 267.51mGy.cm Total DLP DATA REPOSITORY: All CT scans at this facility are submitted to the National Radiology Data Registry (NRDR) Dose Index Registry (DIR) with the [employer] (ACR). RADIATION OPTIMIZATION: All CT scans at this facility use at least one of these dose optimization te chniques: automated exposure control; mA and/or kV adjustment per patient size (includes targeted exa ms where dose is matched to clinical indication); or iterative reconstruction.
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
[2019-09-24] MEDS: Normal Saline - Diluent 50 ML VIAL IV (13:56)
[2019-09-24] MEDS: Omnipaque 350 MG/ML 100 ML BTL 61 ML IJ (13:57)
[2019-09-24 15:28] LABS: Troponin I < 0.05 ng/Ml (<0.06)
[2019-09-24 15:36] VITALS: BP 147/78; PULSE 71; RESP 20; TEMP 37.5; O2SAT 97
[2019-09-24 15:46] LABS: C-Reactive Protein 1.81 mg/dL (0.0-0.3)
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
[2019-09-24 16:03] LABS: Procalcitonin < 0.1 ng/mL
[2019-09-24 16:38] VITALS: BP 147/78; PULSE 71; RESP 20; TEMP 37.5; O2SAT 97
[2019-09-24] MEDS: Normal Saline 1,000 ML 100 ML IV (17:08)
[2019-09-24] MEDS: Enoxaparin 40 MG/0.4 ML SYR SC (17:08)
[2019-09-24] MEDS: THIAMINE 100 MG in Normal Saline 100 ML 200 MG IVPB (17:43)
[2019-09-24 18:20] LABS: Anion Gap 6.8 mmol/L (3-11); BUN 20 mg/dL (7-18); CO2 25.2 mmol/L (21.0-32.0); CREATININE 0.89 mg/dL (0.70-1.30); Calcium 8.5 mg/dL (8.5-10.1); Chloride 96 mmol/L (98-107); Glucose 149 mg/dL (74-106); Potassium 4.1 mmol/L (3.5-5.1); Sodium 128 mmol/L (136-145)
[2019-09-24 18:35] LABS: Sodium, Urine 68 mmol/L
[2019-09-24 19:20] VITALS: BP 140/74; PULSE 72; RESP 18; TEMP 36.9; O2SAT 98
[2019-09-24 20:57] LABS: COVID-19 RT-PCR UVMMC Result Negative (Negative)
[2019-09-24] MEDS: LORazepam 1 MG TAB PO/SL (22:48)
[2019-09-24] MEDS: Nicotine 14 MG/24 HR PATCH TD (22:49)
[2019-09-25 00:46] VITALS: BP 148/76; PULSE 66; RESP 19; TEMP 36.6; O2SAT 95
[2019-09-25 00:48] LABS: Anion Gap 7.2 mmol/L (3-11); BUN 18 mg/dL (7-18); CO2 25.8 mmol/L (21.0-32.0); CREATININE 0.74 mg/dL (0.70-1.30); Calcium 8.7 mg/dL (8.5-10.1); Chloride 96 mmol/L (98-107); Glucose 95 mg/dL (74-106); Potassium 4.1 mmol/L (3.5-5.1); Sodium 129 mmol/L (136-145)
[2019-09-25 03:26] VITALS: BP 153/89; PULSE 60; RESP 17; TEMP 36.4; O2SAT 98
[2019-09-25] MEDS: Normal Saline 1,000 ML 100 ML IV (03:39)
[2019-09-25 06:53] LABS: Abs Immature Grans 0.02 k/cumm (0.0-0.09); Absolute Basophil Count 0.02 k/cumm (0.0-0.2); Absolute Eosinophil Count 0.12 k/cumm (0.0-0.7); Absolute Lymphocyte Count 1.57 k/cumm (1.2-3.4); Absolute Monocyte Count 0.66 k/cumm (0.11-0.7); Absolute Neutrophil Count 3.52 k/cumm (1.2-6.7); Basophils % 0.3; HGB 13.5 g/dL (13.5-17.5); Immature Grans % 0.3 %; Lymphocytes % 26.6; Mean Corp. HGB Concentration 33.8 g/dL (32.0-36.0); Mean Corpuscular Hemoglobin 27.9 pg (27.0-33.0); Mean Corpuscular Volume 82.6 fL (80-95); Mean Platelet Volume 8.3 fL (8.0-11.0); Monocytes % 11.2; Neutrophils % 59.6; Platelet Count 320 x1000/uL (130-400); RBC 4.84 m/cumm (4.50-6.00); RBC Distribution Width 15.2 % (11.8-14.1); White Blood Cell Count 5.91 k/cumm (4.4-10.8)
[2019-09-25 07:06] LABS: Prothrombin Time 9.9 sec (9.3-11.0)
[2019-09-25 07:10] LABS: ALT 21 U/L (16-63); AST 28 U/L (15-37); Albumin 3.1 g/dL (3.4-5.0); Alkaline Phosphatase 72 U/L (46-116); Anion Gap 6.8 mmol/L (3-11); BUN 13 mg/dL (7-18); Bilirubin, Direct 0.12 mg/dL (0.00-0.20); Bilirubin, Total 0.6 mg/dL (0.2-1.0); CO2 26.2 mmol/L (21.0-32.0); CREATININE 0.76 mg/dL (0.70-1.30); Calcium 8.2 mg/dL (8.5-10.1); Chloride 98 mmol/L (98-107); Glucose 92 mg/dL (74-106); Magnesium 1.7 mg/dL (1.8-2.4); Potassium 3.9 mmol/L (3.5-5.1); Sodium 131 mmol/L (136-145); Total Protein 6.8 g/dL (6.4-8.2)
[2019-09-25] MEDS: LORazepam 1 MG TAB PO/SL ×2 (07:30→12:02)
[2019-09-25] MEDS: Thiamine 100 MG TAB PO (07:44)
[2019-09-25] MEDS: Folic Acid 1 MG TAB PO (07:44)
[2019-09-25] MEDS: Multivitamin TAB 1 TAB PO (07:44)
[2019-09-25 08:00] VITALS: BP 150/73; PULSE 69; RESP 18; TEMP 36.7; O2SAT 96
--- NOTE | 2019-09-25 10:35 | DI.US_ITS ---
EXAM: US ABDOMEN INDICATION: cirrohsis r/o COMPARISON: CT CT CHEST PE CTA from 09/24/[address] CHEST PE CTA from 09/24/2019 TECHNIQUE: Ultrasound abdomen performed using standard protocol FINDINGS: LIVER: Normal in size and echogenicity. 8 millimeter cyst in the right lobe. GALLBLADDER: No evidence of cholelithiasis. No pericholecystic fluid identified. No evidence of wall thickening. KIDNEYS: Kidneys are symmetric in size. No evidence of renal calculi. No evidence of hydronephrosis. No renal mass or cyst identified. BILIARY SYSTEM: Common bile duct measures 3 millimeters. No intrahepatic biliary ductal dilation. GARCIA'S SIGN: Negative. PANCREAS: Obscured by bowel gas. SPLEEN: Not enlarged. ABDOMINAL AORTA AND IVC: Visualized portions normal caliber. ASCITES: None seen. IMPRESSION: Incidental small liver cyst. No ultrasonographic findings of cirrhosis or mass..
[2019-09-25] MEDS: MAGNESIUM SULFATE 2 GM/50 ML BAG IVPB (10:46)
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
[2019-09-25 12:32] VITALS: BP 125/76; PULSE 66; RESP 19; TEMP 36.7; O2SAT 97
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
[2019-09-25 16:58] LABS: Osmolality, Urine 294 mOsm/kg (150-1,150)
[2019-09-26 11:05] LABS: Lyme Ab w Rflx to Lyme Confirm Negative (Negative)
[2019-09-26 11:15] LABS: HBs Antibody, Qual Negative (See Note); HBs Antibody, Quant 4.7 mIU/mL (See Note); Hepatitis B Core Antibody Negative (Negative); Hepatitis B surface Ag Negative (Negative); Hepatitis C Ab w Rflx HCV PCR Negative (Negative)
[2019-09-27 20:48] LABS: Anaplasma phagocytophilum Negative (Negative); B. miyamotoi PCR Negative (Negative); Babesia divergens/MO-1 Negative (Negative); Babesia duncani Negative (Negative); Babesia microti Negative (Negative); Ehrlichia chaffeensis Negative (Negative); Ehrlichia ewingii/canis Negative (Negative); Ehrlichia muris eauclairensis Negative (Negative)
== END 2019-09-25 15:08 | disposition home or self-care (01) | DRG 885 ==
LOC: ER 15:35 → MS 15:56
PROVIDERS: Admitting Provider Internal Medicine; Emergency Provider Registered Nurse Emergency; PCP Registered Nurse; Visit Provider Internal Medicine
DX: F23 Brief psychotic disorder (principal); E87.1 Hypo-osmolality and hyponatremia; T43.226A Underdosing of selective serotonin reuptake inhibitors, initial encounter; T43.026A Underdosing of tetracyclic antidepressants, initial encounter; T43.216A Underdosing of selective serotonin and norepinephrine reuptake inhibitors, initial encounter; T45.0X6A Underdosing of antiallergic and antiemetic drugs, initial encounter; E86.0 Dehydration; E83.42 Hypomagnesemia; F10.20 Alcohol dependence, uncomplicated; F17.210 Nicotine dependence, cigarettes, uncomplicated; G47.00 Insomnia, unspecified; F41.9 Anxiety disorder, unspecified; Z03.818 Encounter for observation for suspected exposure to other biological agents ruled out
CPT/HCPCS: 36415; 71275; 80048; 80053; 80076; 80307; 82533; 83935; 84145; 86704; 86706; 86803; 87340; 87798; 93005; 96360; 99223; 99239; 99285; J1650; U0003; 70450; 71045; 76700; 80320; 80329; 81003; 81015; 82436; 83735; 84300; 84443; 84484; 85025; 85610; 86140; 86618; 93010; J3490